=== PATIENT | male | born 1985 | race Caucasian/White ===

== ENCOUNTER → 2016-06-01 | Outpatient (CLI) | payer MEDICARE ==
[2016-06-01 15:10] LABS: HEMOGLOBIN 15.5 gm/dl (14.0-17.5); RED BLOOD COUNT 4.78 M/UL (4.20-5.50); WHITE BLOOD COUNT 5.5 K/UL (4.5-11.0)
[2016-06-01 15:27] LABS: BUN/CREATININE RATIO 18 (0-10)
== END ==
PROVIDERS: Internal Medicine Cardiovascular Disease
DX: R94.5 Abnormal results of liver function studies (principal); E78.2 Mixed hyperlipidemia
CPT/HCPCS: 36415; 80053; 80061; 80074; 83735; 85025; 86618

== ENCOUNTER 2016-06-07 23:59 | Emergency (ER) | payer MEDICARE | END 2016-06-08 03:26 | disposition home or self-care (01) | LOC: ER1 23:59 | DX: R11.2 Nausea with vomiting, unspecified (principal); F17.200 Nicotine dependence, unspecified, uncomplicated | CPT/HCPCS: 81001; 99284 ==

== ENCOUNTER → 2020-09-14 | Outpatient (CLI) | payer BC, OTHER ==
[~2020-09-14] MED LIST: BACTRIM DS TAB1 EACH PO
== END ==
LOC: EMI 09:14
DX: M51.26 Other intervertebral disc displacement, lumbar region (principal)
CPT/HCPCS: 72148

== ENCOUNTER → 2021-11-08 | Outpatient (CLI) | payer BC | LOC: KOH-I 14:59 | DX: M79.672 Pain in left foot (principal); M77.32 Calcaneal spur, left foot | CPT/HCPCS: 73630 ==

== ENCOUNTER 2021-12-01 08:30 | Emergency (ER) | payer BC ==
[2021-12-03 11:14] LABS: CHLAMYDIA TRACHOMATIS, NAA Negative (Negative); NEISSERIA GONORRHOEAE, NAA Negative (Negative)
[2021-12-05 12:08] LABS: HSV-1 DNA Negative (Negative); HSV-2 DNA Negative (Negative)
== END 2021-12-01 11:54 | disposition home or self-care (01) ==
LOC: ER1 08:30
PROVIDERS: Emergency Medicine
DX: R23.8 Other skin changes (principal); F17.200 Nicotine dependence, unspecified, uncomplicated
CPT/HCPCS: 81001; 96372; 99283; J0696